=== PATIENT | male | born 1950 | race Caucasian/White ===

== ENCOUNTER 2019-09-24 07:15 | Outpatient (CLI) | payer MEDICARE, OTHER ==
[2019-09-24 14:36] LABS: #Basophils 0.1 thou/uL (0.0-0.2); #Eosinphils 0.2 thou/uL (0.0-0.7); #Lymphocytes 2.5 thou/uL (1.20-3.40); #Monocytes 0.7 thou/uL (0.11-0.59); %Basophils 1.6 % (0.0-1.0); %Eosinophils 3.1 % (0.0-10.0); %Monocytes 11.4 % (0.0-10.0); %Neutrophils 45.9 % (42.0-75.0); Hemoglobin 15.7 g/dL (14.0-18.0); Mean Corpuscular HGB CONC 31.5 g/dL (32.0-36.0); Mean Corpuscular Hemoglobin 26.8 pg (27.0-31.0); Mean Corpuscular Volume 84.8 fL (78.0-98.0); Platelet Count 161 thou/uL (130-400); Red Blood Cell (RBC) Count 5.86 mill/uL (4.70-6.10); White Blood Cell (WBC) Count 6.5 thou/uL (4.8-10.8)
[2019-09-24 14:47] LABS: Bilirubin Negative (Negative); Blood, Urine Negative (Negative); Clarity Clear (Clear); Glucose, Urine (Dipstick) Greater than 1000 mg/dL (Negative); Leukocyte Negative Leu/uL (Negative); Nitrite Negative (Negative); Protein, Urine (Dipstick) Negative (Neg-Trace); RBC/HPF 0-3 HPF (0-3); Squamous Epithelial None Seen HPF (0-3); Urobilinogen Normal mg/dL (Less than 2); WBC/HPF 0-3 HPF (0-3)
[2019-09-24 14:50] LABS: Bacteria/HPF 1+ HPF (None Seen)
[2019-09-24 15:09] LABS: Anion Gap 11 mmol/L (10-20); BUN (Urea Nitrogen) 18 mg/dL (8.4-25.7); Calc. Creatinine Clearance 0 mL/min (70-130); Calcium 10.4 mg/dL (7.8-10.44); Carbon Dioxide 24 mmol/L (23-31); Chloride 106 mmol/L (98-107); Estimated GFR-MDRD 60; Glucose 89 mg/dL (80-115); Potassium 4.4 mmol/L (3.5-5.1); Sodium 137 mmol/L (136-145)
== END 2019-09-24 07:16 | disposition home or self-care (01) ==
LOC: LABBT 07:15
PROVIDERS: ATTEND Orthopaedic Surgery Hand Surgery
DX: Z01.818 Encounter for other preprocedural examination (principal); M65.322 Trigger finger, left index finger
CPT/HCPCS: 80048; 81001; 85025; 93005; 93010

== ENCOUNTER 2019-09-25 05:36 | Day surgery (SDC) | payer MEDICARE, OTHER ==
[2019-09-24 13:33] VITALS: BMI 29.2
[2019-09-25] MEDS ORDERED: Bupivacaine PF 0.5% 30 ML VIAL ONE (06:26)
[2019-09-25] MEDS ORDERED: Bacitracin Zinc Ointment 30 gm TUBE ONE (06:26)
[2019-09-25] MEDS ORDERED: Betamet Acet/Betamet Na Ph 30 MG/5 ML VIAL ONE (06:26)
[2019-09-25] MEDS ORDERED: Fentanyl 100 MCG/2 ML VIAL ONE (07:03)
--- NOTE | 2019-09-25 12:25 | OP ---
DATE OF PROCEDURE: 09/25/2019 PREOPERATIVE DIAGNOSIS: Left index finger trigger digit. POSTOPERATIVE DIAGNOSES/FINDINGS: 1. Left index finger trigger digit with very tight A1 lázaro. 2. Very thick tenosynovium, flexor digitorum superficial and profundus. 3. Index finger flexor tendon ganglion. PROCEDURES PERFORMED: 1. Tenosynovectomy, flexor tendon sheath, flexor digitorum profundus and superficialis left index finger. 2. Left index finger ganglion tendon sheath excision. 3. Left index finger A1 lázaro release. HISTORY: The patient with history of diabetes, who has had failed injection therapy, bracing, and lifestyle modifications to resolve stage IV triggering of his index finger. TOURNIQUET TIME: 60 minutes. ESTIMATED BLOOD LOSS: 5 mL. INJECTABLE: Celestone 5 mL. DESCRIPTION OF PROCEDURE: After successful general endotracheal anesthesia, the limb was prepped and draped. Time-out was identified the site, side, and location as the index finger A1 lázaro region and matched the consent. The limb was exsanguinated, tourniquet inflated to 250 mmHg pressure. We gave a 10 mL of 0.5% Marcaine block around the outlined longitudinal, but Bishop-type zigzag incision. We carried the incision through skin and subcutaneous tissue, identified protecting the digital nerves. We visualized a very thick flexor tenosynovium 1 cm proximal underneath the A1 lázaro, a ganglion at the junction of the A1 lázaro of the flexor tendon sheath and a very tight tendon sheath to lázaro relationship. We released the lázaro in the midline, Tejon blade. We used tenotomy scissors to and dissect the ganglion free from the tendon sheath and underneath there was marked tenosynovitis to perform a radical flexor tenosynovectomy of the flexor digitorum profundus and superficialis. We then placed Celestone in the wound, released the tourniquet, obtained hemostasis. We closed the wound with interrupted 4-0 nylon in mattress pattern. Bulky dressing was applied. The patient left the operating room without evidence of anesthetic or operative complication. Job ID: [id number]
== END 2019-09-25 10:00 | disposition home or self-care (01) ==
LOC: SDC 05:36
PROVIDERS: ATTEND Orthopaedic Surgery Hand Surgery
PROC: 0LB80ZZ Excision of Left Hand Tendon, Open Approach (ICD-10-PCS; principal; 2019-09-25)
DX: M65.322 Trigger finger, left index finger (principal); M67.442 Ganglion, left hand; E11.9 Type 2 diabetes mellitus without complications; Z79.899 Other long term (current) drug therapy; Z79.84 Long term (current) use of oral hypoglycemic drugs
CPT/HCPCS: 88304; J0690; J0702; J3010; S0020

== ENCOUNTER 2020-02-05 06:51 | Outpatient (CLI) | payer MEDICARE, OTHER | END 2020-02-05 06:52 | disposition home or self-care (01) | LOC: LABBT 06:51 | PROVIDERS: ATTEND Urology | DX: Z01.818 Encounter for other preprocedural examination (principal); C61 Malignant neoplasm of prostate; N52.31 Erectile dysfunction following radical prostatectomy; N39.3 Stress incontinence (female) (male); E11.65 Type 2 diabetes mellitus with hyperglycemia | CPT/HCPCS: 93005; 93010 ==

== ENCOUNTER 2020-02-11 10:50 | Day surgery (SDC) | payer MEDICARE, OTHER ==
[2020-02-05 17:06] VITALS: BMI 29.0
[2020-02-05 17:24] LABS: Hemoglobin 16.2 g/dL (14.0-18.0); Mean Corpuscular HGB CONC 32.9 g/dL (32.0-36.0); Mean Corpuscular Hemoglobin 28.5 pg (27.0-31.0); Mean Corpuscular Volume 86.5 fL (78.0-98.0); Mean Platelet Volume 8.4 fL (7.4-10.4); Platelet Count 174 thou/uL (130-400); RBC Distribution Width 12.9 % (11.5-14.5); Red Blood Cell (RBC) Count 5.68 mill/uL (4.70-6.10); White Blood Cell (WBC) Count 7.4 thou/uL (4.8-10.8)
[2020-02-05 17:30] LABS: PTT 30.5 SEC (22.9-36.1); Prothrombin Time 12.7 SEC (12.0-14.7)
[2020-02-05 17:38] LABS: Bacteria/HPF None Seen HPF (None Seen); Bilirubin Negative (Negative); Blood, Urine Negative (Negative); Clarity Clear (Clear); Glucose, Urine (Dipstick) Greater than 1000 mg/dL (Negative); Leukocyte Negative Leu/uL (Negative); Nitrite Negative (Negative); Protein, Urine (Dipstick) Negative (Neg-Trace); RBC/HPF 0-3 HPF (0-3); Squamous Epithelial None Seen HPF (0-3); Urobilinogen Normal mg/dL (Less than 2); WBC/HPF 0-3 HPF (0-3)
[2020-02-05 17:45] LABS: Anion Gap 11 mmol/L (10-20); BUN (Urea Nitrogen) 16 mg/dL (8.4-25.7); Calc. Creatinine Clearance 0 mL/min (70-130); Calcium 10.6 mg/dL (7.8-10.44); Carbon Dioxide 26 mmol/L (23-31); Chloride 105 mmol/L (98-107); Estimated GFR-MDRD 65; Glucose 103 mg/dL (80-115); Potassium 4.4 mmol/L (3.5-5.1); Sodium 138 mmol/L (136-145)
[~2020-02-11 10:50] MED LIST: EPHEDRINE 25 MG/5 ML SYRINGE ONE; Lidocaine 1% PF 5 ML VIAL ONE; PROPOFOL 200 MG/20 ML VIAL ONE
[2020-02-11] MEDS ORDERED: Fentanyl 100 MCG/2 ML VIAL ONE ×3 (12:20→17:58)
[2020-02-11] MEDS ORDERED: EPINEPHrine 1 MG/ML AMP ONE (12:31)
[2020-02-11] MEDS ORDERED: Iothalamate Meglumine 60% 50 ML VIAL FS ONE (12:31)
[2020-02-11] MEDS ORDERED: Bupivacaine 0.25% HCL 30 ML VIAL ONE (12:31)
[2020-02-11] MEDS ORDERED: Ampicillin 2 GM in Sodium Chloride 0.9% 100 ML IVPB SCH (12:45)
[2020-02-11] MEDS ORDERED: Neomycin-Polymyxin 1 ML AMP ONE (14:58)
[2020-02-11] MEDS ORDERED: Meperidine HCl/PF 25 MG/ML VIAL SLOW IVP PRN (15:57)
[2020-02-11] MEDS ORDERED: Ondansetron HCl/PF 4 MG/2 ML Vial IVP PRN (15:57)
[2020-02-11] MEDS ORDERED: Promethazine HCl 25 MG/ML VIAL SLOW IVP PRN (15:57)
--- NOTE | 2020-02-11 17:06 | OP ---
DATE OF PROCEDURE: 02/11/2020 SERVICE: Urology. PREOPERATIVE DIAGNOSIS: Stress incontinence after prostatectomy. POSTOPERATIVE DIAGNOSIS: Stress incontinence after prostatectomy. PROCEDURE PERFORMED: The Male AdVance XP urethral sling. INDICATION FOR PROCEDURE: Mr. Troy is a 69-year-old white male who underwent a robotic prostatectomy with an outside urologist. He has been having stress incontinence about 3 to 4 pads per day for the past several years. He is bothered by this and wished to have this corrected. We discussed options including external devices, urethral sling, and artificial sphincter and he has elected for urethral sling placement after discussion of risks and benefits. DESCRIPTION OF PROCEDURE: After identification of armband and verification of consent, the patient was brought back to the operating room where he underwent general anesthesia with an LMA. He was then placed in the dorsal lithotomy position and prepped and draped in the usual sterile fashion. After appropriate time-out, a lubricated 16-Thai Ya catheter was passed with ease into the patient's bladder, 10 mL of sterile water was placed into the balloon. The patient then had his scrotum lifted up and an Ioban dressing placed on the scrotum to hold it into the retraction position cephalad. An incision was made along the median raphe of the perineum with a 15 blade. Dissection was carried down with Bovie electrocautery down into the perineal structures until the bulbourethral muscles were identified. The Buffalo retractor was used to retract the surrounding tissues. The muscles were dissected in the midline using a Bovie electrocautery, and once the urethra could be identified, tenotomy scissors were used to dissect the muscles laterally and expose the urethra. The urethra was dissected all the way to the lateral aspect until the inferior pubic rami could be palpated on both sides and high enough to feel the triangle made between the pubic symphysis, the corpora cavernosum, and the inferior pubic ramus. The central tendon was identified and taken down with tenotomy scissors sharply. At this point, a small jeremías was made in the corpus spongiosum, which required a suture ligation using a 3-0 Vicryl. Fortunately, this was the location where we generally put a stay stitch anyway for marking the central tendon location. This was used to close the defect and stop the bleeding. The dissection was then carried down below the central tendon to mobilize urethra for cephalad movement, so that it had at least approximately 3 to 4 cm of cephalad displacement. Once this was achieved, the trocars were prepared and puncture sites were made approximately 1 fingerbreadth below the adductor longus muscle on both sides. Using the provided trocars and the Vixar kit, the trocar was used to guide the trocar to appear at the triangle made by the infrapubic ramus, pubic symphysis, and corpora cavernosum. The trocar was able to be passed through 2 pops and then rotated into this field. On the left side, the initial incision was made a little bit too low, so we did move it up to a higher incision, which then allowed for proper rotation of the trocar. Once both trocars were in position, the urethral sling was affixed to the trocars and then rotated outwards until this mesh material was just at the surface of the skin. A cystoscopy was performed at this point to confirm that there was no bladder injury and the urethra and bladder both demonstrated no evidence of mesh or injuries, hematuria, or puncture sites. The mesh was then positioned directly over the urethra and the Buffalo retractor put back on. Without tensioning, the mesh was affixed, so that the proximal aspect of the mesh was in line with the central tendon location on the urethra and affixed on the distal aspect of the mesh to the bulbar urethra. There was a 4-point fixation performed. At this point, the cystoscope was inserted back into the urethra and positioned near the urethral sphincter. The sling was tensioned until there was good coaptation of the sphincter muscle and the tissues just proximal to the sphincter and there was a good movement cephalad of the urethra. Once it was properly tensioned, the trocars were removed off the sling by cutting above the purple line. Hemostats were then used to grasp just the plastic, and using a finger to hold the mesh medial inside the patient's body to avoid over tensioning. The sleeve was removed off the XP sling. The same thing was done on the other side. The bulbospongiosus muscles were then closed using a 3-0 Vicryl in a running fashion. The deeper fatty tissues were then closed to close space using a 2-0 Vicryl, and then the Dartos and Colles fascia was closed using a 2-0 Vicryl. The skin was closed with a 4-0 Monocryl. The mesh arms were then trimmed and flushed with the skin and the skin elevated to bury the mesh. Dermabond was applied on the puncture sites and over the perineal incision. Approximately 20 mL of 0.25% Marcaine with epinephrine were used to inject all the puncture sites as well as around the incision. Injection was also performed before closure of the deeper structures for full anesthesia. The 16-Thai Ya catheter was then placed back into the patient's bladder with ease and 10 mL of sterile water placed into the balloon. The patient was then taken out of positioning, awakened, and taken to PACU for recovery in stable condition. COMPLICATIONS: None. ESTIMATED BLOOD LOSS: 100 mL. RETAINED TUBES AND DRAINS: 16-Thai Ya catheter. IMPLANTS: [employer] Male AdVance XP sling. DISPOSITION: The patient will be kept in the hospital overnight. We will plan for a void trial in the morning and discharge subsequently. Job ID: [id number]
== END 2020-02-11 18:32 | disposition home or self-care (01) ==
LOC: SDC 10:50
PROVIDERS: ATTEND Urology
PROC: 0TSD0ZZ Reposition Urethra, Open Approach (ICD-10-PCS; principal; 2020-02-11)
DX: N39.3 Stress incontinence (female) (male) (principal); N52.31 Erectile dysfunction following radical prostatectomy; E11.9 Type 2 diabetes mellitus without complications; F33.9 Major depressive disorder, recurrent, unspecified; Z85.46 Personal history of malignant neoplasm of prostate; Z79.84 Long term (current) use of oral hypoglycemic drugs; Z79.899 Other long term (current) drug therapy
CPT/HCPCS: 80048; 81001; 85027; 85610; 85730; 86850; 86900; 86901; 87086; J0171; J0290; J1580; J2001; J2704; J3010; J3490; S0020

== ENCOUNTER 2020-02-17 20:57 | Emergency (ER) | payer MEDICARE, OTHER ==
[2020-02-17 21:58] LABS: #Basophils 0.1 thou/uL (0.0-0.2); #Eosinphils 0.2 thou/uL (0.0-0.7); #Lymphocytes 1.9 thou/uL (1.20-3.40); #Monocytes 0.6 thou/uL (0.11-0.59); #Neutrophils 4.4 thou/uL (1.40-6.50); %Eosinophils 3.2 % (0.0-10.0); %Lymphocytes 26.5 % (21.0-51.0); %Monocytes 8.8 % (0.0-10.0); %Neutrophils 60.5 % (42.0-75.0); Hemoglobin 14.8 g/dL (14.0-18.0); Mean Corpuscular HGB CONC 33.8 g/dL (32.0-36.0); Mean Corpuscular Hemoglobin 28.7 pg (27.0-31.0); Mean Corpuscular Volume 85.2 fL (78.0-98.0); Mean Platelet Volume 7.6 fL (7.4-10.4); Platelet Count 237 thou/uL (130-400); RBC Distribution Width 12.7 % (11.5-14.5); Red Blood Cell (RBC) Count 5.15 mill/uL (4.70-6.10); White Blood Cell (WBC) Count 7.2 thou/uL (4.8-10.8)
[2020-02-17 22:12] LABS: Anion Gap 13 mmol/L (10-20); BUN (Urea Nitrogen) 19 mg/dL (8.4-25.7); Calc. Creatinine Clearance 0 mL/min (70-130); Calcium 10.4 mg/dL (7.8-10.44); Carbon Dioxide 21 mmol/L (23-31); Chloride 109 mmol/L (98-107); Estimated GFR-MDRD 49; Glucose 217 mg/dL (80-115); Potassium 3.8 mmol/L (3.5-5.1); Sodium 139 mmol/L (136-145)
[2020-02-17 22:35] LABS: Bilirubin Negative (Negative); Blood, Urine Negative (Negative); Clarity Clear (Clear); Glucose, Urine (Dipstick) Greater than 1000 mg/dL (Negative); Leukocyte Negative Leu/uL (Negative); Nitrite Negative (Negative); Protein, Urine (Dipstick) Negative (Neg-Trace); Urobilinogen Normal mg/dL (Less than 2)
== END 2020-02-17 23:10 | disposition home or self-care (01) ==
LOC: ERS 20:57
DX: N17.9 Acute kidney failure, unspecified (principal); E11.9 Type 2 diabetes mellitus without complications; E78.5 Hyperlipidemia, unspecified; F32.9 Major depressive disorder, single episode, unspecified
CPT/HCPCS: 36415; 51702; 80048; 81003; 85025; 87086

== ENCOUNTER 2020-05-17 08:10 | Outpatient (CLI) | payer MEDICARE, OTHER ==
--- NOTE | 2020-05-17 14:11 | RAD ---
EXAM: Chest PA and lateral: HISTORY: Preoperative exam. COMPARISON: None FINDINGS: Heart: Normal cardiac silhouette Aorta: Unremarkable Pulmonary vessels: Normal Costophrenic angles: Costophrenic angles are clear. Lungs: No consolidation or masses. Pneumothorax: No pneumothorax Osseous structures: No osseous abnormalities IMPRESSION: No acute cardiopulmonary process.
[2020-05-17 16:16] LABS: Hemoglobin 15.6 g/dL (14.0-18.0); Mean Corpuscular HGB CONC 32.7 g/dL (32.0-36.0); Mean Corpuscular Hemoglobin 28.3 pg (27.0-31.0); Mean Corpuscular Volume 86.6 fL (78.0-98.0); Mean Platelet Volume 8.1 fL (7.4-10.4); Platelet Count 172 thou/uL (130-400); RBC Distribution Width 13.3 % (11.5-14.5); Red Blood Cell (RBC) Count 5.52 mill/uL (4.70-6.10)
[2020-05-17 16:27] LABS: PTT 27.6 sec (22.9-36.1); Prothrombin Time 12.8 sec (12.0-14.7)
[2020-05-17 16:29] LABS: Anion Gap 12 mmol/L (10-20); BUN (Urea Nitrogen) 15 mg/dL (8.4-25.7); Calc. Creatinine Clearance 0 mL/min (70-130); Carbon Dioxide 26 mmol/L (23-31); Chloride 106 mmol/L (98-107); Estimated GFR-MDRD 64; Glucose 97 mg/dL (80-115); Potassium 4.2 mmol/L (3.5-5.1); Sodium 140 mmol/L (136-145)
[2020-05-17 16:33] LABS: Bacteria/HPF 2+ HPF (None Seen); Bilirubin Negative (Negative); Blood, Urine Negative (Negative); Clarity Turbid (Clear); Glucose, Urine (Dipstick) Greater than 1000 mg/dL (Negative); Leukocyte Negative Leu/uL (Negative); Nitrite Negative (Negative); Protein, Urine (Dipstick) Negative (Neg-Trace); RBC/HPF 0-3 HPF (0-3); Squamous Epithelial 0-3 HPF (0-3); Urobilinogen Normal mg/dL (Less than 2)
[2020-05-18 12:45] LABS: SARS-CoV-2 MS2 Positive; SARS-CoV-2 N Gene Negative; SARS-CoV-2 S Gene Negative; SARS-CoV-2 orf1ab Negative
== END 2020-05-17 08:11 | disposition home or self-care (01) ==
LOC: LABBT 08:10
PROVIDERS: ATTEND Urology
DX: Z01.818 Encounter for other preprocedural examination (principal); Z11.59 Encounter for screening for other viral diseases; R33.9 Retention of urine, unspecified; C61 Malignant neoplasm of prostate; N52.31 Erectile dysfunction following radical prostatectomy; E11.65 Type 2 diabetes mellitus with hyperglycemia; N39.3 Stress incontinence (female) (male)
CPT/HCPCS: 71046; 80048; 81001; 85027; 85610; 85730; 87086; U0003; 87077; 87186; 87635; 93005; 93010

== ENCOUNTER 2020-05-19 06:35 | Day surgery (SDC) | payer MEDICARE, OTHER ==
[2020-05-19] MEDS ORDERED: Bupivacaine 0.25% HCL 30 ML VIAL ONE (08:11)
[2020-05-19] MEDS ORDERED: Lidocaine 1% w/Epinephrine 1:100K 20 ML VIAL ONE (08:11)
[2020-05-19] MEDS ORDERED: EPINEPHrine 1 MG/ML AMP ONE (08:11)
[2020-05-19] MEDS ORDERED: Fentanyl 100 MCG/2 ML VIAL ONE (08:23)
--- NOTE | 2020-05-19 10:49 | OP ---
DATE OF PROCEDURE: 05/19/2020 SERVICE: Urology. PREOPERATIVE DIAGNOSIS: Urinary retention. POSTOPERATIVE DIAGNOSIS: Urinary retention. PROCEDURE PERFORMED: Sling incision. INDICATIONS FOR PROCEDURE: Mr. Troy is a 69-year-old white male with a history of prostate cancer status post prostatectomy. He had postoperative stress incontinence and we had treated this with AdVance male sling. Unfortunately, due to his diabetes and probably detrusor under activity, he had urinary retention, which did not resolve with time. The patient was on CIC for approximately 3 to 4 months, and ultimately we elected to remove the sling as the patient stated he would rather have his incontinence returned, then continue to perform CIC indefinitely. Risks and benefits of surgery were discussed and he has agreed to proceed forward. DESCRIPTION OF PROCEDURE: After identification of armband and verification of consent, the patient was brought back to the operating room where he underwent general anesthesia with an LMA. He was placed in the dorsal lithotomy position and prepped and draped in the usual sterile fashion. After appropriate time-out, a Ya catheter was placed sterilely on the field into the bladder with drainage of clear yellow urine. Incision was made on the perineum with a 15 blade and dissection carried down to the bulbourethral muscles. At this point, rather than trying to open the bulbourethral muscles onto the urethra, which likely would be very scarred secondary to the mesh, I elected to go laterally towards the internal aspects of the inferior pubic rami or near the urogenital diaphragm. Blunt dissection was used to go through the urogenital diaphragm to the underside of the inferior pubic ramus. There, the sling could be felt on both sides where they were isolated using right angles and cut using heavy curved Stone's. Initially, the right side was cut and a cystoscopy was performed both before and after the incision. Prior to the incision, there appeared to be a very high ridge as expected for coaptation near the urethral sphincter. After cutting the right side, this did decrease slightly, but still had a fairly significant ridge. While we had previously discussed only cutting one side with the patient, he had elected to improve his chance the most to void. Therefore, I went ahead and decided to cut the left side as well. After the left side of the sling was cut, the urethra dropped completely and the ridge was completely gone with a wide-open patency of the urethra all the way into the bladder. There was no urethral injury and the bladder looked good. At this point, the perineum was irrigated and then dried. 0.25% Marcaine with epinephrine was injected to the subcu tissues and along the underside of the ischial tuberosities for anesthesia. The deeper tissues were closed with a 2-0 Vicryl and the dartos was closed with a 2-0 Vicryl in a running fashion. The skin was closed with a 4-0 Monocryl in a running fashion and Dermabond applied. Once dried, all the retractors and everything were taken out. The patient was then returned back to the supine position, awakened, taken to PACU for recovery in stable condition. COMPLICATIONS: None. ESTIMATED BLOOD LOSS: Minimal. RETAINED TUBES AND DRAINS: None. SPECIMENS: None. DISPOSITION: The patient will be discharged home. He will follow up with me in approximately 1 to 2 weeks for a postoperative check. Of note, he will not require a Ya catheter. The patient already knows how to self-catheterize. If he does have any postoperative urinary retention for a short time, he can self catheterize to empty his bladder. Job ID: [id number]
[2020-05-19] MEDS ORDERED: HYDROcodone/Acetaminophen 5/325 mg Tablet ONE (11:48)
[2020-05-19] MEDS ORDERED: PROPOFOL 200 MG/20 ML VIAL ONE (15:30)
[2020-05-19] MEDS ORDERED: Ondansetron PF 4 MG/2 ML Vial ONE (15:30)
[2020-05-19] MEDS ORDERED: Dexamethasone 20 MG/5 ML VIAL ONE (15:30)
[2020-05-19] MEDS ORDERED: Lidocaine 1% PF 5 ML VIAL ONE (15:30)
[2020-05-19] MEDS ORDERED: EPHEDRINE 25 MG/5 ML SYRINGE ONE (15:30)
== END 2020-05-19 12:04 | disposition home or self-care (01) ==
LOC: SDC 06:35
PROVIDERS: ATTEND Urology
PROC: 0TSD0ZZ Reposition Urethra, Open Approach (ICD-10-PCS; principal; 2020-05-19)
DX: R33.9 Retention of urine, unspecified (principal); E11.9 Type 2 diabetes mellitus without complications; F32.9 Major depressive disorder, single episode, unspecified; M19.90 Unspecified osteoarthritis, unspecified site; Z79.84 Long term (current) use of oral hypoglycemic drugs; Z79.899 Other long term (current) drug therapy
CPT/HCPCS: J0171; J0690; J1100; J2001; J2405; J2704; J3010; S0020